=== PATIENT | female | born 1995 | race Caucasian/White ===

== ENCOUNTER 2017-10-27 21:01 | Emergency (ER) | payer MEDICAID ==
[~2017-10-27] VITALS: Ht 162.6 cm; Wt 93.0 kg
[~2017-10-27 21:01] MED LIST: IBUP800T24 PO; PRENCAP61 PO
[2017-10-27] MEDS ORDERED: KETOROLAC TROMETH 60MG/2ML VIAL IM ONE (23:30)
[2017-10-27] MEDS ORDERED: HYDROcodone-ACET 10/325MG TAB PO ONE (23:45)
[2017-10-28] MEDS ORDERED: CYCLOBENZAPRINE HCL 10 MG TAB PO ONE (01:15)
[2017-10-28 03:18] VITALS: BP 119/62
== END 2017-10-28 03:19 | disposition home or self-care (01) ==
LOC: EDBD 21:01 → ER 21:09
DX: M54.31 Sciatica, right side (principal); E66.01 Morbid (severe) obesity due to excess calories; Z68.35 Body mass index [BMI] 35.0-35.9, adult; Z91.040 Latex allergy status; Z88.0 Allergy status to penicillin; V49.9XXA Car occupant (driver) (passenger) injured in unspecified traffic accident, initial encounter; Y93.89 Activity, other specified; Y92.89 Other specified places as the place of occurrence of the external cause; Y99.8 Other external cause status
CPT/HCPCS: 72128; 72131; 73590

== ENCOUNTER 2023-11-24 09:50 | Inpatient (IN) | payer MEDICAID ==
[~2023-11-24] VITALS: Ht 160 cm; Wt 114.7 kg
[2023-11-24] VITALS (10 sets, daily range): BP systolic 98–118; BP diastolic 46–59; PULSE 76–129; RESP 16–21; TEMP 98.1–101.4; O2SAT 95–100
[~2023-11-24 09:50] MED LIST changes: +IBUP-1456 PO; -IBUP800T24 PO
[2023-11-24] MEDS ORDERED: MORPHINE SULFATE 4 MG/ML SYR/VIAL IV ONE (10:15)
[2023-11-24] MEDS ORDERED: SODIUM CHLORIDE 0.9% 1,000 ML IV ONE ×2 (10:15)
[2023-11-24] MEDS ORDERED: ONDANSETRON HCL 4 MG/2 ML VIAL IV ONE (10:15)
[2023-11-24 10:54] LABS: Basophils # (auto) 0 10 ^3/uL (0-0.2); Basophils % (auto) 0.2 % (0.0-2.0); Eosinophils # (auto) 0 10 ^3/uL (0-0.8); Hematocrit 44.1 % (36.0-46.0); Hemoglobin 15.2 g/dL (12.2-16.2); Lymphocytes # (auto) 2.7 10 ^3/uL (0.4-5.4); Lymphocytes % (auto) 17.7 % (10.0-50.0); Mean Corpuscular Hemoglobin 29.9 pg (28.0-32.0); Mean Corpuscular Hgb Conc. 34.4 g/dL (32.0-36.0); Mean Corpuscular Volume 86.9 fL (80.0-100.0); Monocytes # (auto) 1.1 10 ^3/uL (0-1.3); Monocytes % (auto) 7.4 % (0.0-12.0); Neutrophils # (auto) 11.2 10 ^3/uL (1.6-8.6); Neutrophils % (auto) 74.7 % (37.0-80.0); Nucleated Red Blood Cells % 0.1 %; Red Blood Cells 5.08 10^6/uL (4.0-5.20)
[2023-11-24 11:05] LABS: Alanine Aminotransferase 16 U/L (7-40); Albumin 4.4 g/dL (3.2-4.8); Alkaline Phosphatase 88 U/L (46-116); Anion Gap 7 (5-15); Aspartate Aminotransferase 14 U/L (13-40); BUN/Creatinine Ratio 17.8 (10.0-20.0); Blood Urea Nitrogen 13 mg/dL (9-23); Calcium 9.1 mg/dL (8.7-10.4); Carbon Dioxide 26 mmol/L (20-30); Chloride 106 mmol/L (98-107); Glucose 102 mg/dL (74-106); Lipase 23 U/L (12-53); Potassium 3.9 mmol/L (3.5-5.1); Sodium 139 mmol/L (136-145)
[2023-11-24 11:06] LABS: Bilirubin, Total 0.7 mg/dL (0.2-1.0)
[2023-11-24] MEDS ORDERED: metroNIDAZOLE 500MG/100ML 100 ML IV ONE (12:15)
[2023-11-24] MEDS ORDERED: levoFLOXacin 500MG 100 ML IV ONE (12:15)
[2023-11-24 12:32] LABS: INR 1.02 (0.9-1.15); Partial Thromboplastin Time 28.4 SEC (24.5-34.5); Prothrombin Time 10.7 sec (9.3-11.8)
[2023-11-24] MEDS: SODIUM CHLORIDE 0.9% 1,000 ML IV SCH ×2 (12:45→23:30)
[2023-11-24] MEDS ORDERED: ACETAMINOPHEN 325 MG TAB PO PRN (12:45)
[2023-11-24] MEDS ORDERED: PANTOPRAZOLE 40 MG/10 ML VIAL INJ IV ONE (12:45)
[2023-11-24] MEDS ORDERED: ALBUTEROL SULF 2.5 MG/0.5ML(0.5%) NEB SOLN NEB PRN (12:45)
[2023-11-24 13:21] LABS: Triglycerides 193 mg/dL (< 150)
[2023-11-24 13:22] LABS: LDL Cholesterol 133 mg/dL (< 100)
[2023-11-24 13:23] LABS: Cholesterol 189 mg/dL (< 200); HDL Cholesterol 45 mg/dL (40-59)
[2023-11-24] MEDS ORDERED: SERT-206 PO (14:23)
[2023-11-24] MEDS ORDERED: MONT-8 PO (14:23)
[2023-11-24] MEDS ORDERED: NORE1CHW3 PO (14:23)
[2023-11-24] MEDS ORDERED: NORE1CHW PO (14:26)
[2023-11-24] MEDS: MORPHINE SULFATE INJ 2 MG/ml SYRG IV PRN ×2 (14:35→21:49)
[2023-11-24] MEDS: ONDANSETRON HCL 4 MG/2 ML VIAL IV PRN (14:36)
[2023-11-24] MEDS: metroNIDAZOLE 500MG/100ML 100 ML IV SCH ×2 (14:36→21:49)
[2023-11-24] MEDS ORDERED: BUPIVACAINE 0.5% P/F INJ 10 ML VIAL ONE (17:08)
[2023-11-24] MEDS ORDERED: ceFAZolin 1GM/50ML 100 ML IV ONE (17:42)
[2023-11-24] MEDS ORDERED: HYDROmorphone HCL 2 MG/ML VL/or syr IV PRN (19:15)
[2023-11-24] MEDS ORDERED: ONDANSETRON HCL 4 MG/2 ML VIAL IV PRN (19:15)
[2023-11-25] VITALS (9 sets, daily range): BP systolic 103–109; BP diastolic 49–73; PULSE 53–72; RESP 16–20; TEMP 97.4–98.6; O2SAT 94–100
[2023-11-25] MEDS: MORPHINE SULFATE INJ 2 MG/ml SYRG IV PRN ×2 (02:07→08:49)
[2023-11-25] MEDS: metroNIDAZOLE 500MG/100ML 100 ML IV SCH ×3 (05:28→21:24)
[2023-11-25 06:02] LABS: Basophils # (auto) 0 10 ^3/uL (0-0.2); Eosinophils # (auto) 0 10 ^3/uL (0-0.8); Hematocrit 38.4 % (36.0-46.0); Lymphocytes # (auto) 0.7 10 ^3/uL (0.4-5.4); Lymphocytes % (auto) 6.3 % (10.0-50.0); Mean Corpuscular Hgb Conc. 33.8 g/dL (32.0-36.0); Mean Corpuscular Volume 88.8 fL (80.0-100.0); Monocytes # (auto) 0.6 10 ^3/uL (0-1.3); Monocytes % (auto) 5.2 % (0.0-12.0); Neutrophils # (auto) 10.2 10 ^3/uL (1.6-8.6); Neutrophils % (auto) 88.5 % (37.0-80.0); Red Blood Cells 4.33 10^6/uL (4.0-5.20); Red Cell Distribution Width 13.2 % (11.8-14.3); White Blood Cell 11.6 10^3/uL (4.4-10.8)
[2023-11-25 06:15] LABS: Albumin 3.8 g/dL (3.2-4.8); Alkaline Phosphatase 60 U/L (46-116); Anion Gap 9 (5-15); Aspartate Aminotransferase 8 U/L (13-40); BUN/Creatinine Ratio 11.4 (10.0-20.0); Bilirubin, Total 0.6 mg/dL (0.2-1.0); Blood Urea Nitrogen 8 mg/dL (9-23); Calcium 8.2 mg/dL (8.7-10.4); Carbon Dioxide 23 mmol/L (20-30); Chloride 108 mmol/L (98-107); Glucose 154 mg/dL (74-106); Potassium 4.1 mmol/L (3.5-5.1); Sodium 140 mmol/L (136-145); Total Protein 6.5 g/dL (5.7-8.2)
[2023-11-25 07:03] LABS: Alanine Aminotransferase 9 U/L (7-40)
[2023-11-25] MEDS: ONDANSETRON HCL 4 MG/2 ML VIAL IV PRN ×2 (08:49→23:16)
[2023-11-25] MEDS: SODIUM CHLORIDE 0.9% 1,000 ML IV SCH ×3 (08:49→21:08)
[2023-11-25] MEDS: levoFLOXacin 500MG 100 ML IV SCH (10:00)
[2023-11-25] MEDS: PANTOPRAZOLE 40 MG/10 ML VIAL INJ IV SCH (10:00)
[2023-11-25] MEDS ORDERED: HYDROcodone-ACET 7.5/325MG TAB PO PRN (13:00)
[2023-11-25] MEDS: HYDROmorphone HCL 2 MG/ML VL/or syr IV PRN ×2 (17:08→23:15)
[2023-11-26] VITALS (8 sets, daily range): BP systolic 107–116; BP diastolic 56–68; PULSE 69–100; RESP 18–20; TEMP 98.5–101.6; O2SAT 94–97
[2023-11-26] MEDS: HYDROmorphone HCL 2 MG/ML VL/or syr IV PRN ×3 (05:11→21:44)
[2023-11-26] MEDS: metroNIDAZOLE 500MG/100ML 100 ML IV SCH ×3 (05:12→21:12)
[2023-11-26] MEDS: HYDROcodone-ACET 7.5/325MG TAB PO PRN ×2 (09:19→14:54)
[2023-11-26] MEDS: levoFLOXacin 500MG 100 ML IV SCH (09:34)
[2023-11-26] MEDS: PANTOPRAZOLE 40 MG/10 ML VIAL INJ IV SCH (09:34)
[2023-11-26] MEDS: SODIUM CHLORIDE 0.9% 1,000 ML IV SCH (14:54)
[2023-11-27] VITALS (8 sets, daily range): BP systolic 112–115; BP diastolic 65–72; PULSE 67–88; RESP 17–20; TEMP 97.6–99.7; O2SAT 95–99
[2023-11-27] MEDS: SODIUM CHLORIDE 0.9% 1,000 ML IV SCH ×2 (00:58→15:17)
[2023-11-27] MEDS: metroNIDAZOLE 500MG/100ML 100 ML IV SCH ×3 (06:25→21:03)
[2023-11-27] MEDS: ONDANSETRON HCL 4 MG/2 ML VIAL IV PRN (08:22)
[2023-11-27] MEDS: HYDROmorphone HCL 2 MG/ML VL/or syr IV PRN ×2 (08:22→15:18)
[2023-11-27] MEDS: PANTOPRAZOLE 40 MG/10 ML VIAL INJ IV SCH (09:46)
[2023-11-27] MEDS: levoFLOXacin 500MG 100 ML IV SCH (09:46)
[2023-11-27] MEDS: HYDROcodone-ACET 7.5/325MG TAB PO PRN ×2 (13:41→21:15)
[2023-11-28] MEDS: SODIUM CHLORIDE 0.9% 1,000 ML IV SCH ×2 (00:40→06:45)
[2023-11-28 01:00] VITALS: BP 115/65; PULSE 68; RESP 18; O2SAT 95
[2023-11-28 05:00] VITALS: BP 114/71; PULSE 90; RESP 18; TEMP 99.3; O2SAT 92
[2023-11-28] MEDS: metroNIDAZOLE 500MG/100ML 100 ML IV SCH (05:09)
[2023-11-28] MEDS: HYDROcodone-ACET 7.5/325MG TAB PO PRN (08:25)
[2023-11-28 09:00] VITALS: BP 109/52; PULSE 85; RESP 18; TEMP 98; O2SAT 95
[2023-11-28] MEDS ORDERED: HYDR2TAB58 PO (09:41)
[2023-11-28] MEDS ORDERED: METR-344 PO (09:41)
[2023-11-28] MEDS ORDERED: LEVO750T8 PO (09:41)
[2023-11-28] MEDS: PANTOPRAZOLE 40 MG/10 ML VIAL INJ IV SCH (09:45)
[2023-11-28] MEDS: levoFLOXacin 500MG 100 ML IV SCH (09:46)
[2023-11-28 10:11] VITALS: TEMP 36.7
== END 2023-11-28 11:40 | disposition home or self-care (01) | DRG 233 ==
LOC: EDBD 09:50 → EDUNIT# 09:50 → ER 09:50 → OVERFLOW 12:53 → EAST 14:05
PROVIDERS: ADMIT Family Medicine; ATTEND Family Medicine
PROC: 0W9G4ZZ Drainage of Peritoneal Cavity, Percutaneous Endoscopic Approach (ICD-10-PCS; 2023-11-24)
PROC: 0DTJ4ZZ Resection of Appendix, Percutaneous Endoscopic Approach (ICD-10-PCS; principal; 2023-11-24 17:50)
DX: K35.33 Acute appendicitis with perforation, localized peritonitis, and gangrene, with abscess (principal); J96.01 Acute respiratory failure with hypoxia; R65.11 Systemic inflammatory response syndrome (SIRS) of non-infectious origin with acute organ dysfunction; E66.01 Morbid (severe) obesity due to excess calories; E86.0 Dehydration; J45.909 Unspecified asthma, uncomplicated; Z88.0 Allergy status to penicillin; Z91.040 Latex allergy status; Z68.41 Body mass index [BMI] 40.0-44.9, adult; Z83.3 Family history of diabetes mellitus; Z82.3 Family history of stroke; Z80.9 Family history of malignant neoplasm, unspecified
CPT/HCPCS: 36415; 74176; 80053; 80061; 83605; 83690; 84443; 84702; 85025; 85610; 85730; 86850; 86900; 86901; 87040; 97163; 99291; C9113; G0378; J1956; J2405; J3490